=== PATIENT | male | born 1955 | race African-American/Black ===

== ENCOUNTER 2017-01-11 11:11 | Inpatient (IN) | payer MEDICARE, MEDICAID ==
[~2017-01-11] VITALS: Ht 182.9 cm; Wt 80.7 kg
[2017-01-11] MEDS ORDERED: SODIUM CHLORIDE 0.9% 1000ML BAG (SEPSIS BOLUS) IV ONE (11:30)
[2017-01-11 11:52] LABS: BASOPHILS % 0.5 % (0.0-2.0); EOSINOPHILS % 0.3 % (0.0-5.0); HEMATOCRIT. 37.9 % (42.0-52.0); HEMOGLOBIN. 13.2 g/dL (14.0-18.0); LYMPHOCYTES % 37.8 % (20.0-50.0); MEAN CORPUSCULAR HEMOGLOBIN 30.2 pg (28.0-32.0); MEAN CORPUSCULAR VOLUME 86.9 fL (80.0-94.0); MEAN PLATELET VOLUME 7.8 fl (7.4-10.4); MONOCYTES % 9.5 % (2.0-8.0); NEUTROPHILS % 51.9 % (40.0-76.0); PLATELET 255 x1000/uL (130-400); RED BLOOD CELL COUNT 4.36 mill/uL (4.7-6.1); RED CELL DISTRIBUTION WIDTH 13.5 % (11.6-14.6)
[2017-01-11 11:59] LABS: INR 1.1
[2017-01-11 12:06] LABS: CARBON DIOXIDE 25 mEq/L (21-32); CHLORIDE 98 mEq/L (98-107)
[2017-01-11 12:25] LABS: CLARITY URINE CLEAR (CLEAR); COLOR URINE YELLOW (YELLOW); GLUCOSE URINE NEGATIVE (NEGATIVE); KETONES URINE TRACE (NEGATIVE); LEUKOCYTE ESTERASE URINE NEGATIVE (NEGATIVE); NITRITE URINE NEGATIVE (NEGATIVE); OCCULT BLOOD URINE NEGATIVE (NEGATIVE); PROTEIN URINE TRACE (NEGATIVE); SPECIFIC GRAVITY URINE 1.023 (1.005-1.030); UROBILINOGEN URINE 0.2 E.U./dL (0.2-1.0)
[2017-01-11] MEDS ORDERED: SODIUM BICARBONATE 4% (2.4MEQ) 5ML VIAL IV ONE (14:20)
[2017-01-11] MEDS ORDERED: LIDOCAINE HCL 1% 20ML VIAL (Pyxis) INJ ONE (14:20)
[2017-01-11] MEDS ORDERED: PIPERACILLIN/TAZOBACTAM 3.375GM/50ML PREMIX IV ONE (14:30)
[2017-01-11] MEDS ORDERED: VANCOMYCIN 1 G PREMIX 200 ML IV SCH (14:30)
[2017-01-11] MEDS ORDERED: PIPERACILLIN/TAZ 3.375G PREMIX 50 ML IV ONE (14:45)
[2017-01-11] MEDS ORDERED: LORAZEPAM 2MG/ML CPJ IV ONE (14:45)
[2017-01-11] MEDS ORDERED: LORAZEPAM 2MG/ML CPJ ONE (14:54)
[2017-01-11] MEDS ORDERED: NOREPINEPHRINE 4 MG in DEXT 5% WATER 250 ML IV STA (14:56)
[2017-01-11] MEDS ORDERED: NOREPINEPHRINE 4 MG in DEXT 5% WATER 246 ML IV STA (15:07)
[2017-01-11] MEDS ORDERED: SODIUM CHLORIDE 0.9% 1,000 ML IV ONE (15:28)
[2017-01-11] MEDS ORDERED: ACETAMINOPHEN 650MG/20.3ML UDC GT PRN (15:45)
[2017-01-11] MEDS ORDERED: ONDANSETRON HCL 4MG/2ML VIAL IV PRN (15:45)
[2017-01-11] MEDS ORDERED: NOREPINEPHRINE 4 MG in DEXT 5% WATER 246 ML IV SCH (15:45)
[2017-01-11] MEDS ORDERED: IPRATROPIUM/ALBUTEROL 0.5-3(2.5)MG/3ML NEB INH PRN (15:45)
[2017-01-11 16:18] LABS: BG BASE EXCESS -4.1 mmol/L (-2.0-2.0); BG CARBOXYHEMOGLOBIN 0.4 % (0.5-1.5); BG FRACTION INSPIRED OXYGEN 28; BG HCO3 ACT 21.7 mmol/L (22.0-26.0); BG OXYHEMOGLOBIN 97.6 % (94.0-97.0); BG PCO2 42.6 mmHg (35.0-45.0); BG PH 7.325 (7.350-7.450); BG PO2 126.5 mmHg (75.0-100.0); BG SAMPLE SITE RIGHT BRACHIAL; BG VENT MODE NASAL CANNULA
[2017-01-11 16:57] LABS: AMMONIA 28 uMol/L (<32)
[2017-01-11] MEDS ORDERED: NOREPINEPHRINE 4 MG in DEXT 5% WATER 246 ML IV NR (23:30)
[2017-01-11] MEDS: LORAZEPAM 2MG/ML CPJ IV PRN (23:44)
[2017-01-12] VITALS (43 sets, daily range): BP systolic 44–147; BP diastolic 32–109
[2017-01-12] MEDS ORDERED: LORAZEPAM 2MG/ML CPJ IV ONE (04:30)
[2017-01-12] MEDS: LORAZEPAM 2MG/ML CPJ IV PRN ×4 (04:32→18:14)
[2017-01-12] MEDS ORDERED: NOREPINEPHRINE 4 MG in DEXT 5% WATER 246 ML IV SCH (04:45)
[2017-01-12] MEDS ORDERED: LORAZEPAM 2MG/ML CPJ ONE (08:19)
[2017-01-12] MEDS ORDERED: NOREPINEPHRINE 4 MG in DEXTROSE 5% WATER 250 ML IV PRN (10:00)
[2017-01-12] MEDS ORDERED: PIPERACILLIN/TAZ 3.375G PREMIX 50 ML IV NR (11:30)
[2017-01-12 12:40] LABS: BASOPHILS % 0.4 % (0.0-2.0); EOSINOPHILS % 0.4 % (0.0-5.0); HEMATOCRIT. 37.4 % (42.0-52.0); HEMOGLOBIN. 12.9 g/dL (14.0-18.0); LYMPHOCYTES % 34.7 % (20.0-50.0); MEAN CORPUSCULAR HEMOGLOBIN 30.2 pg (28.0-32.0); MEAN CORPUSCULAR VOLUME 87.7 fL (80.0-94.0); MEAN PLATELET VOLUME 7.7 fl (7.4-10.4); MONOCYTES % 12.8 % (2.0-8.0); NEUTROPHILS % 51.7 % (40.0-76.0); PLATELET 243 x1000/uL (130-400); RED BLOOD CELL COUNT 4.27 mill/uL (4.7-6.1); RED CELL DISTRIBUTION WIDTH 13.5 % (11.6-14.6)
[2017-01-12 12:57] LABS: AMMONIA 29 uMol/L (<32)
[2017-01-12 12:58] LABS: CARBON DIOXIDE 28 mEq/L (21-32); CHLORIDE 105 mEq/L (98-107); LDL CHOLESTEROL 52 mg/dL (5-100); TROPONIN I < 0.02 ng/mL (0.00-0.04)
[2017-01-12 13:04] LABS: CREATINE KINASE 224 IU/L (39-308); CREATINE KINASE MB FRACTION 2.4 ng/mL (0.5-3.6); HDL CHOLESTEROL 38 mg/dL (40-59)
[2017-01-12] MEDS ORDERED: LORAZEPAM 2MG/ML CPJ IV SCH (13:45)
[2017-01-12] MEDS: SODIUM CHLORIDE 0.9% 1,000 ML IV SCH ×2 (16:52→16:53)
[2017-01-12] MEDS: PIPERACILLIN/TAZ 3.375G PREMIX 50 ML IV SCH ×2 (16:54→23:32)
[2017-01-12] MEDS ORDERED: PIPERACILLIN/TAZ 3.375G PREMIX 50 ML IV SCH (18:00)
[2017-01-12] MEDS: ENOXAPARIN 40MG/0.4ML SYR SUBCUT SCH (18:15)
[2017-01-12 18:24] LABS: ETHANOL BLOOD < 10 mg/dL; T4 FREE 0.85 ng/dL (0.76-1.46)
[2017-01-12 18:41] LABS: VITAMIN B12 SERUM 996 pg/mL (211-911)
[2017-01-12 20:40] LABS: FOLIC ACID (FOLATE) SERUM > 20.00 ng/mL (>5.38)
[2017-01-13] VITALS (61 sets, daily range): BP systolic 92–157; BP diastolic 35–97
[2017-01-13] MEDS: SODIUM CHLORIDE 0.9% 1,000 ML IV SCH ×3 (04:44→17:34)
[2017-01-13 05:43] LABS: BASOPHILS % 0.4 % (0.0-2.0); EOSINOPHILS % 1.1 % (0.0-5.0); HEMATOCRIT. 36.5 % (42.0-52.0); HEMOGLOBIN. 12.6 g/dL (14.0-18.0); LYMPHOCYTES % 48.3 % (20.0-50.0); MEAN CORPUSCULAR HEMOGLOBIN 30.4 pg (28.0-32.0); MEAN CORPUSCULAR VOLUME 88.1 fL (80.0-94.0); MEAN PLATELET VOLUME 7.9 fl (7.4-10.4); MONOCYTES % 13.6 % (2.0-8.0); NEUTROPHILS % 36.6 % (40.0-76.0); PLATELET 216 x1000/uL (130-400); RED BLOOD CELL COUNT 4.14 mill/uL (4.7-6.1); RED CELL DISTRIBUTION WIDTH 13.4 % (11.6-14.6)
[2017-01-13] MEDS: PIPERACILLIN/TAZ 3.375G PREMIX 50 ML IV SCH ×3 (05:47→21:53)
[2017-01-13 06:19] LABS: CARBON DIOXIDE 30 mEq/L (21-32); CHLORIDE 106 mEq/L (98-107); PHOSPHORUS 2.3 mg/dL (2.5-4.9)
[2017-01-13] MEDS: PANTOPRAZOLE SODIUM 40 MG/VIAL IV SCH (09:19)
[2017-01-13 09:52] LABS: *AMPHETAMINES SCREEN URINE NEGATIVE (NEGATIVE); *BARBITURATES SCREEN URINE NEGATIVE (NEGATIVE); *BENZODIAZEPINES SCREEN URINE NEGATIVE (NEGATIVE); *COCAINE SCREEN URINE NEGATIVE (NEGATIVE); CANNABINOID URINE SCREEN NEGATIVE (NEGATIVE); METHADONE URINE SCREEN NEGATIVE (NEGATIVE); OPIATES URINE SCREEN NEGATIVE (NEGATIVE); PHENCYCLIDINE URINE SCREEN NEGATIVE (NEGATIVE)
[2017-01-13] MEDS ORDERED: SODIUM PHOS,M-BASIC-D-BASIC 15 MM in DEXT 5% WATER 245 ML IV SCH (11:00)
[2017-01-13] MEDS ORDERED: DEXTROSE 50% WATER 50ML SYRINGE IV PRN (11:45)
[2017-01-13] MEDS: INSULIN LISPRO 100 UNITS/ML SUBCUT SCH ×3 (12:00→20:55)
[2017-01-13] MEDS: LORAZEPAM 2MG/ML CPJ IV PRN ×2 (12:40→19:26)
[2017-01-13] MEDS: BLOOD SUGAR DIAGNOSTIC STRIP TEST SCH ×2 (16:42→20:37)
[2017-01-13] MEDS: ENOXAPARIN 40MG/0.4ML SYR SUBCUT SCH (17:34)
[2017-01-13] MEDS: DIPHENHYDRAMINE 50MG/ML VIAL IV PRN (20:54)
[2017-01-14] VITALS (8 sets, daily range): BP systolic 125–150; BP diastolic 61–99
[2017-01-14] MEDS: LORAZEPAM 2MG/ML CPJ IV PRN ×2 (00:30→04:22)
[2017-01-14] MEDS: SODIUM CHLORIDE 0.9% 1,000 ML IV SCH ×3 (03:52→23:05)
[2017-01-14] MEDS: MORPHINE SULFATE 4 MG/ML CPJ (NOT FOR IM USE) IV PRN ×2 (04:50→23:02)
[2017-01-14] MEDS: PIPERACILLIN/TAZ 3.375G PREMIX 50 ML IV SCH ×3 (06:43→23:01)
[2017-01-14 06:55] LABS: BASOPHILS % 0.7 % (0.0-2.0); EOSINOPHILS % 1.4 % (0.0-5.0); HEMATOCRIT. 34.6 % (42.0-52.0); MEAN CORPUSCULAR HEMOGLOBIN 30.4 pg (28.0-32.0); MEAN CORPUSCULAR VOLUME 87.6 fL (80.0-94.0); MEAN PLATELET VOLUME 7.9 fl (7.4-10.4); MONOCYTES % 10.7 % (2.0-8.0); NEUTROPHILS % 38.2 % (40.0-76.0); PLATELET 211 x1000/uL (130-400); RED BLOOD CELL COUNT 3.95 mill/uL (4.7-6.1); RED CELL DISTRIBUTION WIDTH 13.5 % (11.6-14.6)
[2017-01-14] MEDS: INSULIN LISPRO 100 UNITS/ML SUBCUT SCH ×4 (07:50→21:00)
[2017-01-14 07:57] LABS: PHOSPHORUS 2.9 mg/dL (2.5-4.9)
[2017-01-14] MEDS: BLOOD SUGAR DIAGNOSTIC STRIP TEST SCH ×4 (10:00→21:48)
[2017-01-14] MEDS: PANTOPRAZOLE SODIUM 40 MG/VIAL IV SCH (10:05)
[2017-01-14] MEDS: ENOXAPARIN 40MG/0.4ML SYR SUBCUT SCH (18:14)
[2017-01-15] VITALS: BP 149/90
[2017-01-15 04:00] VITALS: BP 156/96
[2017-01-15 05:24] LABS: BASOPHILS % 0.5 % (0.0-2.0); EOSINOPHILS % 1.2 % (0.0-5.0); HEMATOCRIT. 35.1 % (42.0-52.0); HEMOGLOBIN. 11.9 g/dL (14.0-18.0); LYMPHOCYTES % 39.4 % (20.0-50.0); MEAN CORPUSCULAR HEMOGLOBIN 30.1 pg (28.0-32.0); MEAN CORPUSCULAR VOLUME 88.6 fL (80.0-94.0); MEAN PLATELET VOLUME 7.7 fl (7.4-10.4); MONOCYTES % 13.3 % (2.0-8.0); NEUTROPHILS % 45.6 % (40.0-76.0); PLATELET 225 x1000/uL (130-400); RED BLOOD CELL COUNT 3.97 mill/uL (4.7-6.1); RED CELL DISTRIBUTION WIDTH 13.3 % (11.6-14.6)
[2017-01-15] MEDS: PIPERACILLIN/TAZ 3.375G PREMIX 50 ML IV SCH ×3 (05:36→21:29)
[2017-01-15] MEDS: CLONIDINE 0.1MG TABLET PO PRN ×2 (07:18→21:29)
[2017-01-15 07:48] VITALS: BP 144/77
[2017-01-15] MEDS: INSULIN LISPRO 100 UNITS/ML SUBCUT SCH ×4 (07:50→21:00)
[2017-01-15] MEDS: BLOOD SUGAR DIAGNOSTIC STRIP TEST SCH ×4 (08:02→21:10)
[2017-01-15 08:12] LABS: PHOSPHORUS 3.4 mg/dL (2.5-4.9)
[2017-01-15] MEDS: PANTOPRAZOLE SODIUM 40 MG/VIAL IV SCH (08:21)
[2017-01-15] MEDS: LORAZEPAM 2MG/ML CPJ IV PRN (08:21)
[2017-01-15 12:00] VITALS: BP 125/83
[2017-01-15 16:11] VITALS: BP 145/88
[2017-01-15] MEDS: ENOXAPARIN 40MG/0.4ML SYR SUBCUT SCH (18:00)
[2017-01-15 20:00] VITALS: BP 173/91
[2017-01-15] MEDS: ASCORBIC ACID 250 MG TABLET PO SCH (21:28)
[2017-01-16] VITALS: BP 142/85
[2017-01-16 04:00] VITALS: BP 148/94
[2017-01-16] MEDS: PIPERACILLIN/TAZ 3.375G PREMIX 50 ML IV SCH ×3 (05:57→21:54)
[2017-01-16 06:18] LABS: PHOSPHORUS 3.2 mg/dL (2.5-4.9)
[2017-01-16 06:19] LABS: BASOPHILS % 0.6 % (0.0-2.0); EOSINOPHILS % 0.8 % (0.0-5.0); HEMATOCRIT. 38.8 % (42.0-52.0); HEMOGLOBIN. 13.3 g/dL (14.0-18.0); LYMPHOCYTES % 34.7 % (20.0-50.0); MEAN CORPUSCULAR HEMOGLOBIN 30.3 pg (28.0-32.0); MEAN CORPUSCULAR VOLUME 88.4 fL (80.0-94.0); MEAN PLATELET VOLUME 7.9 fl (7.4-10.4); MONOCYTES % 11.7 % (2.0-8.0); NEUTROPHILS % 52.2 % (40.0-76.0); PLATELET 260 x1000/uL (130-400); RED BLOOD CELL COUNT 4.39 mill/uL (4.7-6.1); RED CELL DISTRIBUTION WIDTH 13.5 % (11.6-14.6)
[2017-01-16] MEDS: BLOOD SUGAR DIAGNOSTIC STRIP TEST SCH ×4 (07:20→21:53)
[2017-01-16 07:44] VITALS: BP 146/94
[2017-01-16] MEDS: INSULIN LISPRO 100 UNITS/ML SUBCUT SCH ×3 (07:50→21:00)
[2017-01-16] MEDS: MULTIVITAMINS,THER W-MINERALS TABLET PO SCH (08:58)
[2017-01-16] MEDS: ASCORBIC ACID 250 MG TABLET PO SCH ×2 (08:58→21:53)
[2017-01-16] MEDS: FAMOTIDINE 20MG/2ML VIAL IV SCH ×2 (08:58→21:53)
[2017-01-16] MEDS: ZINC SULFATE 220 MG ( 50 ) CAPSULE PO SCH (08:58)
[2017-01-16 11:52] VITALS: BP 134/82
[2017-01-16 15:51] VITALS: BP 134/84
[2017-01-16] MEDS ORDERED: MORPHINE SULFATE 4 MG/ML CPJ (NOT FOR IM USE) IV PRN (16:30)
[2017-01-16] MEDS: ENOXAPARIN 40MG/0.4ML SYR SUBCUT SCH (17:31)
[2017-01-16] MEDS: LORAZEPAM 2MG/ML CPJ IV PRN ×2 (17:37→21:54)
[2017-01-16 20:00] VITALS: BP 107/72
[2017-01-17] VITALS: BP 127/74
[2017-01-17] MEDS: LORAZEPAM 2MG/ML CPJ IV PRN ×3 (03:04→21:32)
[2017-01-17 04:00] VITALS: BP 128/83
[2017-01-17] MEDS: PIPERACILLIN/TAZ 3.375G PREMIX 50 ML IV SCH ×3 (06:08→21:32)
[2017-01-17] MEDS: BLOOD SUGAR DIAGNOSTIC STRIP TEST SCH ×4 (06:30→21:32)
[2017-01-17] MEDS: INSULIN LISPRO 100 UNITS/ML SUBCUT SCH ×4 (07:46→21:00)
[2017-01-17 08:00] VITALS: BP 134/83
[2017-01-17 08:43] LABS: BASOPHILS % 0.5 % (0.0-2.0); EOSINOPHILS % 2.9 % (0.0-5.0); HEMATOCRIT. 39.4 % (42.0-52.0); HEMOGLOBIN. 13.6 g/dL (14.0-18.0); LYMPHOCYTES % 38.8 % (20.0-50.0); MEAN CORPUSCULAR HEMOGLOBIN 30.3 pg (28.0-32.0); MEAN CORPUSCULAR VOLUME 87.4 fL (80.0-94.0); MEAN PLATELET VOLUME 7.5 fl (7.4-10.4); MONOCYTES % 12.5 % (2.0-8.0); NEUTROPHILS % 45.3 % (40.0-76.0); PLATELET 263 x1000/uL (130-400); RED CELL DISTRIBUTION WIDTH 13.3 % (11.6-14.6)
[2017-01-17] MEDS: ZINC SULFATE 220 MG ( 50 ) CAPSULE PO SCH (09:03)
[2017-01-17] MEDS: FAMOTIDINE 20MG/2ML VIAL IV SCH ×2 (09:03→21:31)
[2017-01-17] MEDS: MULTIVITAMINS,THER W-MINERALS TABLET PO SCH (09:03)
[2017-01-17 09:09] LABS: PHOSPHORUS 3.1 mg/dL (2.5-4.9)
[2017-01-17] MEDS: ASCORBIC ACID 250 MG TABLET PO SCH ×2 (09:11→21:32)
[2017-01-17 12:00] VITALS: BP 125/88
[2017-01-17 16:00] VITALS: BP 130/81
[2017-01-17] MEDS: ENOXAPARIN 40MG/0.4ML SYR SUBCUT SCH (17:25)
[2017-01-17 20:00] VITALS: BP 127/79
[2017-01-17] MEDS: DIPHENHYDRAMINE 50MG/ML VIAL IV PRN (23:22)
[2017-01-18] VITALS: BP 142/77
[2017-01-18 04:00] VITALS: BP 138/79
[2017-01-18] MEDS: PIPERACILLIN/TAZ 3.375G PREMIX 50 ML IV SCH ×3 (06:28→21:20)
[2017-01-18] MEDS: BLOOD SUGAR DIAGNOSTIC STRIP TEST SCH ×4 (06:38→21:00)
[2017-01-18 06:47] LABS: BASOPHILS % 0.5 % (0.0-2.0); EOSINOPHILS % 3.2 % (0.0-5.0); HEMATOCRIT. 39.9 % (42.0-52.0); HEMOGLOBIN. 13.9 g/dL (14.0-18.0); LYMPHOCYTES % 44.5 % (20.0-50.0); MEAN CORPUSCULAR HEMOGLOBIN 30.7 pg (28.0-32.0); MEAN CORPUSCULAR VOLUME 88.4 fL (80.0-94.0); MEAN PLATELET VOLUME 7.7 fl (7.4-10.4); MONOCYTES % 12.1 % (2.0-8.0); NEUTROPHILS % 39.7 % (40.0-76.0); PLATELET 277 x1000/uL (130-400); RED BLOOD CELL COUNT 4.51 mill/uL (4.7-6.1); RED CELL DISTRIBUTION WIDTH 13.6 % (11.6-14.6)
[2017-01-18] MEDS: LORAZEPAM 2MG/ML CPJ IV PRN ×2 (07:23→17:59)
[2017-01-18] MEDS: INSULIN LISPRO 100 UNITS/ML SUBCUT SCH ×4 (07:50→21:00)
[2017-01-18 07:51] LABS: PHOSPHORUS 3.8 mg/dL (2.5-4.9)
[2017-01-18 08:35] VITALS: BP 144/85
[2017-01-18] MEDS: FAMOTIDINE 20MG/2ML VIAL IV SCH ×2 (09:23→21:20)
[2017-01-18] MEDS: ZINC SULFATE 220 MG ( 50 ) CAPSULE PO SCH (09:24)
[2017-01-18] MEDS: ASCORBIC ACID 250 MG TABLET PO SCH ×2 (09:24→21:20)
[2017-01-18] MEDS: MULTIVITAMINS,THER W-MINERALS TABLET PO SCH (09:24)
[2017-01-18 12:35] VITALS: BP 99/43
[2017-01-18 16:53] VITALS: BP 132/83
[2017-01-18] MEDS: ENOXAPARIN 40MG/0.4ML SYR SUBCUT SCH (18:00)
[2017-01-18 19:44] VITALS: BP 130/90
[2017-01-18] MEDS: DIPHENHYDRAMINE 50MG/ML VIAL IV PRN (21:20)
[2017-01-19 00:19] VITALS: BP 129/83
[2017-01-19] MEDS: LORAZEPAM 2MG/ML CPJ IV PRN ×3 (00:57→22:46)
[2017-01-19 04:23] VITALS: BP 119/73
[2017-01-19] MEDS: PIPERACILLIN/TAZ 3.375G PREMIX 50 ML IV SCH ×3 (05:58→23:17)
[2017-01-19 07:05] LABS: BASOPHILS % 0.8 % (0.0-2.0); EOSINOPHILS % 3.6 % (0.0-5.0); HEMATOCRIT. 38.1 % (42.0-52.0); HEMOGLOBIN. 13.1 g/dL (14.0-18.0); LYMPHOCYTES % 54.5 % (20.0-50.0); MEAN CORPUSCULAR HEMOGLOBIN 30.3 pg (28.0-32.0); MEAN CORPUSCULAR VOLUME 88.3 fL (80.0-94.0); MONOCYTES % 11.4 % (2.0-8.0); NEUTROPHILS % 29.7 % (40.0-76.0); PLATELET 256 x1000/uL (130-400); RED BLOOD CELL COUNT 4.31 mill/uL (4.7-6.1); RED CELL DISTRIBUTION WIDTH 13.8 % (11.6-14.6)
[2017-01-19] MEDS: BLOOD SUGAR DIAGNOSTIC STRIP TEST SCH ×4 (07:20→21:00)
[2017-01-19] MEDS: INSULIN LISPRO 100 UNITS/ML SUBCUT SCH ×4 (07:50→21:00)
[2017-01-19 08:30] VITALS: BP 125/72
[2017-01-19] MEDS: FAMOTIDINE 20MG/2ML VIAL IV SCH ×2 (10:00→22:46)
[2017-01-19] MEDS: ASCORBIC ACID 250 MG TABLET PO SCH ×2 (10:01→22:46)
[2017-01-19] MEDS: DIPHENHYDRAMINE 50MG/ML VIAL IV PRN ×2 (10:01→15:36)
[2017-01-19] MEDS: ZINC SULFATE 220 MG ( 50 ) CAPSULE PO SCH (10:01)
[2017-01-19] MEDS: MULTIVITAMINS,THER W-MINERALS TABLET PO SCH (10:01)
[2017-01-19 12:29] VITALS: BP 130/83
[2017-01-19] MEDS ORDERED: HALOPERIDOL LACTATE 5MG/ML VIAL IM NR (16:12)
[2017-01-19 16:38] VITALS: BP 162/81
[2017-01-19] MEDS: ENOXAPARIN 40MG/0.4ML SYR SUBCUT SCH (17:50)
[2017-01-19 19:55] VITALS: BP 153/89
[2017-01-20] VITALS: BP 137/87
[2017-01-20] MEDS: LORAZEPAM 2MG/ML CPJ IV PRN ×2 (01:21→20:44)
[2017-01-20] MEDS: DIPHENHYDRAMINE 50MG/ML VIAL IV PRN (02:27)
[2017-01-20 04:37] VITALS: BP 122/94
[2017-01-20] MEDS: BLOOD SUGAR DIAGNOSTIC STRIP TEST SCH ×4 (06:47→20:24)
[2017-01-20 07:14] LABS: BASOPHILS % 0.9 % (0.0-2.0); EOSINOPHILS % 3.4 % (0.0-5.0); HEMATOCRIT. 37.3 % (42.0-52.0); LYMPHOCYTES % 54.6 % (20.0-50.0); MEAN CORPUSCULAR HEMOGLOBIN 30.6 pg (28.0-32.0); MEAN CORPUSCULAR VOLUME 87.8 fL (80.0-94.0); MEAN PLATELET VOLUME 7.8 fl (7.4-10.4); MONOCYTES % 11.7 % (2.0-8.0); NEUTROPHILS % 29.4 % (40.0-76.0); PLATELET 259 x1000/uL (130-400); RED BLOOD CELL COUNT 4.25 mill/uL (4.7-6.1); RED CELL DISTRIBUTION WIDTH 13.5 % (11.6-14.6)
[2017-01-20] MEDS: INSULIN LISPRO 100 UNITS/ML SUBCUT SCH ×4 (07:50→20:26)
[2017-01-20 08:00] VITALS: BP 145/109
[2017-01-20 08:28] LABS: PHOSPHORUS 3.6 mg/dL (2.5-4.9)
[2017-01-20] MEDS: CLONIDINE 0.1MG TABLET PO PRN (10:08)
[2017-01-20] MEDS: ZINC SULFATE 220 MG ( 50 ) CAPSULE PO SCH (10:08)
[2017-01-20] MEDS: FAMOTIDINE 20MG/2ML VIAL IV SCH ×2 (10:08→20:25)
[2017-01-20 12:00] VITALS: BP 118/79
[2017-01-20] MEDS: ASCORBIC ACID 250 MG TABLET PO SCH ×2 (14:24→20:25)
[2017-01-20] MEDS: MULTIVITAMINS,THER W-MINERALS TABLET PO SCH (14:24)
[2017-01-20 16:00] VITALS: BP 120/86
[2017-01-20] MEDS: ENOXAPARIN 40MG/0.4ML SYR SUBCUT SCH (18:56)
[2017-01-20 20:00] VITALS: BP 151/97
[2017-01-21 00:34] VITALS: BP 123/86
[2017-01-21 04:00] VITALS: BP 140/93
[2017-01-21] MEDS: LORAZEPAM 2MG/ML CPJ IV PRN ×2 (04:43→21:51)
[2017-01-21] MEDS: BLOOD SUGAR DIAGNOSTIC STRIP TEST SCH ×4 (06:35→21:41)
[2017-01-21] MEDS: INSULIN LISPRO 100 UNITS/ML SUBCUT SCH ×4 (07:36→21:00)
[2017-01-21 08:00] VITALS: BP 145/99
[2017-01-21] MEDS: FAMOTIDINE 20MG/2ML VIAL IV SCH ×2 (09:02→21:45)
[2017-01-21] MEDS: ASCORBIC ACID 250 MG TABLET PO SCH ×2 (09:02→21:45)
[2017-01-21] MEDS: ZINC SULFATE 220 MG ( 50 ) CAPSULE PO SCH (09:02)
[2017-01-21] MEDS: MULTIVITAMINS,THER W-MINERALS TABLET PO SCH (09:03)
[2017-01-21 12:00] VITALS: BP 124/88
[2017-01-21 16:00] VITALS: BP 131/87
[2017-01-21] MEDS: ENOXAPARIN 40MG/0.4ML SYR SUBCUT SCH (17:34)
[2017-01-21 20:53] VITALS: BP 146/92
[2017-01-22 00:23] VITALS: BP 116/81
[2017-01-22 04:00] VITALS: BP 130/88
[2017-01-22] MEDS: BLOOD SUGAR DIAGNOSTIC STRIP TEST SCH ×4 (06:22→20:59)
[2017-01-22 07:08] LABS: BASOPHILS % 0.9 % (0.0-2.0); EOSINOPHILS % 3.2 % (0.0-5.0); HEMATOCRIT. 43.9 % (42.0-52.0); HEMOGLOBIN. 15.3 g/dL (14.0-18.0); LYMPHOCYTES % 52.2 % (20.0-50.0); MEAN CORPUSCULAR HEMOGLOBIN 30.6 pg (28.0-32.0); MEAN CORPUSCULAR VOLUME 87.6 fL (80.0-94.0); MEAN PLATELET VOLUME 7.9 fl (7.4-10.4); MONOCYTES % 11.5 % (2.0-8.0); NEUTROPHILS % 32.2 % (40.0-76.0); PLATELET 313 x1000/uL (130-400); RED BLOOD CELL COUNT 5.01 mill/uL (4.7-6.1); RED CELL DISTRIBUTION WIDTH 13.5 % (11.6-14.6)
[2017-01-22] MEDS: INSULIN LISPRO 100 UNITS/ML SUBCUT SCH ×4 (07:43→21:00)
[2017-01-22 07:56] LABS: CARBON DIOXIDE 26 mEq/L (21-32); CHLORIDE 100 mEq/L (98-107); PHOSPHORUS 3.4 mg/dL (2.5-4.9)
[2017-01-22 08:00] VITALS: BP 136/90
[2017-01-22] MEDS: ASCORBIC ACID 250 MG TABLET PO SCH ×2 (08:38→21:07)
[2017-01-22] MEDS: FAMOTIDINE 20MG/2ML VIAL IV SCH ×2 (08:38→21:07)
[2017-01-22] MEDS: ZINC SULFATE 220 MG ( 50 ) CAPSULE PO SCH (08:38)
[2017-01-22] MEDS: MULTIVITAMINS,THER W-MINERALS TABLET PO SCH (08:38)
[2017-01-22 12:00] VITALS: BP 136/94
[2017-01-22 16:00] VITALS: BP 152/96
[2017-01-22] MEDS: ENOXAPARIN 40MG/0.4ML SYR SUBCUT SCH (17:41)
[2017-01-22 20:00] VITALS: BP 142/94
[2017-01-23] VITALS: BP 137/97
[2017-01-23] MEDS: DIPHENHYDRAMINE 50MG/ML VIAL IV PRN ×4 (01:39→22:00)
[2017-01-23 04:00] VITALS: BP 145/103
[2017-01-23] MEDS: BLOOD SUGAR DIAGNOSTIC STRIP TEST SCH ×5 (06:44→22:19)
[2017-01-23 07:06] LABS: BASOPHILS % 0.8 % (0.0-2.0); EOSINOPHILS % 1.6 % (0.0-5.0); HEMATOCRIT. 43.3 % (42.0-52.0); HEMOGLOBIN. 14.9 g/dL (14.0-18.0); LYMPHOCYTES % 46.5 % (20.0-50.0); MEAN CORPUSCULAR HEMOGLOBIN 29.8 pg (28.0-32.0); MEAN CORPUSCULAR VOLUME 86.7 fL (80.0-94.0); MEAN PLATELET VOLUME 7.6 fl (7.4-10.4); MONOCYTES % 10.3 % (2.0-8.0); NEUTROPHILS % 40.8 % (40.0-76.0); PLATELET 359 x1000/uL (130-400); RED BLOOD CELL COUNT 4.99 mill/uL (4.7-6.1); RED CELL DISTRIBUTION WIDTH 13.9 % (11.6-14.6)
[2017-01-23] MEDS: INSULIN LISPRO 100 UNITS/ML SUBCUT SCH ×4 (07:50→21:00)
[2017-01-23 07:58] LABS: PHOSPHORUS 3.5 mg/dL (2.5-4.9)
[2017-01-23 08:02] VITALS: BP 166/79
[2017-01-23] MEDS: ZINC SULFATE 220 MG ( 50 ) CAPSULE PO SCH (09:34)
[2017-01-23] MEDS: ASCORBIC ACID 250 MG TABLET PO SCH ×2 (09:34→22:06)
[2017-01-23] MEDS: FAMOTIDINE 20MG/2ML VIAL IV SCH (09:35)
[2017-01-23] MEDS: MULTIVITAMINS,THER W-MINERALS TABLET PO SCH (09:35)
[2017-01-23 12:00] VITALS: BP 139/90
[2017-01-23] MEDS: AMLODIPINE 2.5MG TABLET PO SCH (13:36)
[2017-01-23 16:00] VITALS: BP 134/91
[2017-01-23 20:00] VITALS: BP 127/97
[2017-01-23] MEDS: ENOXAPARIN 40MG/0.4ML SYR SUBCUT SCH (22:05)
[2017-01-24] VITALS: BP 142/75
[2017-01-24 04:00] VITALS: BP 113/60
[2017-01-24] MEDS: DIPHENHYDRAMINE 50MG/ML VIAL IV PRN ×2 (04:15→21:20)
[2017-01-24] MEDS: INSULIN LISPRO 100 UNITS/ML SUBCUT SCH ×4 (06:14→21:00)
[2017-01-24 07:38] LABS: BASOPHILS % 0.8 % (0.0-2.0); EOSINOPHILS % 1.9 % (0.0-5.0); HEMOGLOBIN. 14.5 g/dL (14.0-18.0); LYMPHOCYTES % 48.4 % (20.0-50.0); MEAN CORPUSCULAR HEMOGLOBIN 30.1 pg (28.0-32.0); MEAN CORPUSCULAR VOLUME 87.1 fL (80.0-94.0); MEAN PLATELET VOLUME 7.8 fl (7.4-10.4); MONOCYTES % 11.1 % (2.0-8.0); NEUTROPHILS % 37.8 % (40.0-76.0); PLATELET 307 x1000/uL (130-400); RED BLOOD CELL COUNT 4.82 mill/uL (4.7-6.1); RED CELL DISTRIBUTION WIDTH 13.8 % (11.6-14.6)
[2017-01-24 08:00] VITALS: BP 143/89
[2017-01-24] MEDS: MULTIVITAMINS,THER W-MINERALS TABLET PO SCH (08:41)
[2017-01-24] MEDS: ZINC SULFATE 220 MG ( 50 ) CAPSULE PO SCH (08:42)
[2017-01-24] MEDS: ASCORBIC ACID 250 MG TABLET PO SCH ×2 (08:42→21:20)
[2017-01-24] MEDS: AMLODIPINE 2.5MG TABLET PO SCH (08:42)
[2017-01-24] MEDS ORDERED: FAMOTIDINE 20MG/2ML VIAL IV SCH (09:00)
[2017-01-24 12:01] VITALS: BP 142/91
[2017-01-24] MEDS: BLOOD SUGAR DIAGNOSTIC STRIP TEST SCH ×3 (12:51→21:18)
[2017-01-24 16:00] VITALS: BP 153/78
[2017-01-24] MEDS: ENOXAPARIN 40MG/0.4ML SYR SUBCUT SCH (17:42)
[2017-01-24 20:00] VITALS: BP 122/84
[2017-01-24] MEDS: FAMOTIDINE 20MG/2ML VIAL IV SCH (21:19)
[2017-01-25] VITALS: BP 147/97
[2017-01-25] MEDS: DIPHENHYDRAMINE 50MG/ML VIAL IV PRN (03:50)
[2017-01-25 04:00] VITALS: BP 137/91
[2017-01-25] MEDS: BLOOD SUGAR DIAGNOSTIC STRIP TEST SCH ×3 (06:27→17:53)
[2017-01-25] MEDS: INSULIN LISPRO 100 UNITS/ML SUBCUT SCH ×3 (06:28→17:50)
[2017-01-25 07:20] LABS: EOSINOPHILS % 2.1 % (0.0-5.0); HEMATOCRIT. 43.5 % (42.0-52.0); HEMOGLOBIN. 15.2 g/dL (14.0-18.0); LYMPHOCYTES % 45.3 % (20.0-50.0); MEAN CORPUSCULAR HEMOGLOBIN 30.6 pg (28.0-32.0); MEAN CORPUSCULAR VOLUME 87.4 fL (80.0-94.0); MEAN PLATELET VOLUME 7.7 fl (7.4-10.4); MONOCYTES % 10.6 % (2.0-8.0); PLATELET 343 x1000/uL (130-400); RED BLOOD CELL COUNT 4.98 mill/uL (4.7-6.1); RED CELL DISTRIBUTION WIDTH 13.5 % (11.6-14.6)
[2017-01-25 08:12] LABS: CARBON DIOXIDE 26 mEq/L (21-32); CHLORIDE 102 mEq/L (98-107)
[2017-01-25 08:30] VITALS: BP 155/48
[2017-01-25] MEDS: FAMOTIDINE 20MG/2ML VIAL IV SCH (09:25)
[2017-01-25] MEDS: AMLODIPINE 2.5MG TABLET PO SCH (09:26)
[2017-01-25] MEDS: MULTIVITAMINS,THER W-MINERALS TABLET PO SCH (09:26)
[2017-01-25] MEDS: ZINC SULFATE 220 MG ( 50 ) CAPSULE PO SCH (09:26)
[2017-01-25] MEDS: ASCORBIC ACID 250 MG TABLET PO SCH (09:26)
[2017-01-25 12:38] VITALS: BP 153/99
[2017-01-25 17:23] VITALS: BP 139/87
[2017-01-25] MEDS: ENOXAPARIN 40MG/0.4ML SYR SUBCUT SCH ×2 (17:54→17:57)
[2017-01-25 18:46] VITALS: BP 139/87
[2017-01-26] MEDS ORDERED: AMLODIPINE 5MG TABLET PO SCH (09:00)
== END 2017-01-25 19:30 | disposition home or self-care (01) | DRG 91 ==
LOC: ER 12:23 → EDBD 12:23 → MICUNO 15:15 → EDBEDREQ 15:18 → EDBEDREQTM 15:18 → ENRESERV 01-12 12:54 → 6WST 01-14 02:50
PROVIDERS: ADMIT Internal Medicine; ATTEND Internal Medicine
PROC: 02HV33Z Insertion of Infusion Device into Superior Vena Cava, Percutaneous Approach (ICD-10-PCS; principal; 2017-01-11)
PROC: B548ZZA Ultrasonography of Superior Vena Cava, Guidance (ICD-10-PCS; 2017-01-11)
DX: G92 Toxic encephalopathy (principal); N17.0 Acute kidney failure with tubular necrosis; R57.9 Shock, unspecified; I47.2 Ventricular tachycardia; N18.3 Chronic kidney disease, stage 3 (moderate); E87.4 Mixed disorder of acid-base balance; E87.1 Hypo-osmolality and hyponatremia; F84.0 Autistic disorder; N39.0 Urinary tract infection, site not specified; F03.90 Unspecified dementia, unspecified severity, without behavioral disturbance, psychotic disturbance, mood disturbance, and anxiety; E11.22 Type 2 diabetes mellitus with diabetic chronic kidney disease; D64.9 Anemia, unspecified; Z78.1 Physical restraint status
CPT/HCPCS: 36415; 36569; 36600; 70450; 71010; 76770; 76937; 80048; 80053; 80061; 80305; 81001; 82140; 82270; 82375; 82533; 82550; 82553; 82607; 82746; 82805; 82962; 83036; 83605; 83735; 83880; 84100; 84439; 84443; 84481; 84484; 85025; 85379; 85610; 87040; 87086; 92610; 93005; 93306; 93970; 96365; 96366; 96367; 96368; 96375; 96376; 97116; 97162; 97167; 97530; 97535; 99291; A6261; C1725; C9113; G0482; J1200; J1630; J1650; J1815; J2060; J2270; J2543; J3370; J3490; J7030; J7050; J7060; J7620; A4315